=== PATIENT | male | born 1995 | race Caucasian/White ===

== ENCOUNTER 2017-10-08 02:23 | Emergency (ER) | payer MEDICAID, OTHER ==
[~2017-10-08] VITALS: Ht 170.2 cm; Wt 59.3 kg
[2017-10-08 02:27] VITALS: BP 124/70
== END 2017-10-08 03:07 | disposition home or self-care (01) ==
LOC: ED 02:45
DX: H60.92 Unspecified otitis externa, left ear (principal)
CPT/HCPCS: 99283

== ENCOUNTER 2018-06-28 15:01 | Emergency (ER) | payer OTHER ==
[~2018-06-28] VITALS: Ht 170.2 cm; Wt 59.5 kg
[2018-06-28 15:33] VITALS: BP 129/77
== END 2018-06-28 17:08 | disposition home or self-care (01) ==
LOC: ED 16:45
DX: B37.9 Candidiasis, unspecified (principal); K14.0 Glossitis; F17.210 Nicotine dependence, cigarettes, uncomplicated
CPT/HCPCS: 99283